=== PATIENT | female | born 1980 | race Caucasian/White ===

== ENCOUNTER 2018-04-18 00:55 | Inpatient (IN) | payer MEDICAID ==
[2018-04-18] MEDS ORDERED: CARBOPROST 250 MCG INJ IM ×2 (02:30→07:00)
[2018-04-18] MEDS ORDERED: MISOPROSTOL 200 MCG TAB PR ×2 (02:30→07:00)
[2018-04-18] MEDS ORDERED: OXYTOCIN 30 UNITS/LR 500 ML IV ×2 (02:30→07:00)
[2018-04-18] MEDS ORDERED: METHYLERGONOVINE 0.2 MG INJ IM ×2 (02:30→07:00)
[2018-04-18] MEDS ORDERED: BUTORPHANOL 2 MG INJ IV (02:30)
[2018-04-18] MEDS ORDERED: LIDOCAINE 1% (MPF) 30 ML INJ INJ (02:30)
[2018-04-18] MEDS: LACTATED RINGER'S 1,000 ML IV ×2 (02:52→03:24)
[2018-04-18 03:21] LABS: ADD MAN DIFF? NO
[2018-04-18] MEDS: AMPICILLIN 2 GM/NS (PMX) 100 ML IV (03:24)
[2018-04-18 03:25] LABS: BASOPHILS % 0.4 % (0.0-2.0); EOSINOPHILS # 0.3 10^3/ul (0.0-0.5); EOSINOPHILS % 3.2 % (0.0-7.0); HEMATOCRIT 37.5 % (37.0-47.0); HEMOGLOBIN 12.9 g/dl (12.0-16.0); LYMPHOCYTES % 22.4 % (15.0-51.0); MEAN CORPUSCULAR HGB CONC 34.4 g/dl (32.0-37.0); MEAN CORPUSCULAR VOLUME 93.1 fl (82.0-101.0); MEAN PLATELET VOLUME 11.1 fl (7.4-10.4); MONOCYTE # 0.8 10^3/ul (0.3-0.9); MONOCYTES % 8.9 % (0.0-11.0); NEUTROPHIL # 5.8 10^3/ul (1.6-7.5); NEUTROPHILS % 64.8 % (39.0-77.0); PLATELET COUNT 276 10^3/UL (140-415); RED BLOOD COUNT 4.03 10^6/ul (4.20-5.40); RED CELL DISTRIBUTION WIDTH 13.4 % (11.5-14.5)
[2018-04-18 03:40] LABS: INR 0.91; PROTIME 12.3 Sec (11.9-14.9)
[2018-04-18 03:41] LABS: PARTIAL THROMBOPLASTIN TIME 23.9 Sec (25.0-35.0)
[2018-04-18] MEDS ORDERED: EPHEDrine SULFATE 50 MG/5 ML SYG IV (04:00)
[2018-04-18] MEDS ORDERED: FENTAnyl 2MCG/ML-ROPIV 0.2% 100 ML BAG EPI (04:00)
[2018-04-18] MEDS ORDERED: DIPHENHYDRAMINE 50 MG INJ IV (04:00)
[2018-04-18] MEDS ORDERED: ONDANSETRON 4 MG INJ IV (04:00)
[2018-04-18] MEDS ORDERED: NALOXONE (0.4 MG/ML) INJ IV (04:00)
[2018-04-18 04:12] LABS: HEPATITIS B SURFACE ANTIGEN NEGATIVE (NEGATIVE)
[2018-04-18] MEDS: OXYTOCIN 30 UNITS/LR 500 ML IV ×2 (04:26→05:12)
[2018-04-18] MEDS: IBUPROFEN 600 MG TAB PO ×4 (04:43→23:33)
[2018-04-18] MEDS ORDERED: AMPICILLIN 1 GM/NS (PMX) 50 ML IV (06:30)
[2018-04-18] MEDS ORDERED: ACETAMINOPHEN 325 MG TAB PO (07:00)
[2018-04-18] MEDS ORDERED: HYDROCODONE/APAP (5/325) TAB PO (07:00)
[2018-04-18] MEDS: SENNA/DOCUSATE NA (8.6MG/50MG) TAB PO ×2 (08:39→22:01)
[2018-04-18] MEDS: WITCH HAZEL/GLYCERIN PAD PR (08:48)
[2018-04-18] MEDS: BENZOCAINE 20% 56 ML SPRAY TOP (08:48)
[2018-04-18] MEDS: DIBUCAINE 1% 30 GM OINT TOP (08:48)
[2018-04-18] MEDS: LANOLIN 7 GM TUBE TOP (08:49)
[2018-04-18] MEDS: LACTATED RINGER'S 1,000 ML IV* (10:07)
[2018-04-18 11:44] LABS: AMPHETAMINE/METHAMPHETAMINE NEGATIVE (NEGATIVE); BARBITURATES NEGATIVE (NEGATIVE); BENZODIAZEPINES NEGATIVE (NEGATIVE); CANNABINOIDS NEGATIVE (NEGATIVE); COCAINE NEGATIVE (NEGATIVE); OPIATES NEGATIVE (NEGATIVE)
[2018-04-18 15:31] LABS: RAPID PLASMA REAGIN NONREACTIVE (NR)
[2018-04-19] MEDS: IBUPROFEN 600 MG TAB PO ×3 (06:00→17:36)
[2018-04-19 07:03] LABS: ADD MAN DIFF? NO
[2018-04-19 07:10] LABS: BASOPHIL # 0.1 10^3/ul (0.0-0.1); BASOPHILS % 0.7 % (0.0-2.0); EOSINOPHILS # 0.3 10^3/ul (0.0-0.5); EOSINOPHILS % 3.2 % (0.0-7.0); HEMATOCRIT 35.1 % (37.0-47.0); HEMOGLOBIN 11.8 g/dl (12.0-16.0); LYMPHOCYTES # 2.3 10^3/ul (0.8-2.9); LYMPHOCYTES % 25.5 % (15.0-51.0); MEAN CORPUSCULAR HEMOGLOBIN 31.3 pg (29.0-33.0); MEAN CORPUSCULAR HGB CONC 33.6 g/dl (32.0-37.0); MEAN CORPUSCULAR VOLUME 93.1 fl (82.0-101.0); MONOCYTE # 0.7 10^3/ul (0.3-0.9); MONOCYTES % 7.3 % (0.0-11.0); NEUTROPHIL # 5.6 10^3/ul (1.6-7.5); PLATELET COUNT 268 10^3/UL (140-415); RED BLOOD COUNT 3.77 10^6/ul (4.20-5.40); RED CELL DISTRIBUTION WIDTH 13.7 % (11.5-14.5)
[2018-04-19 07:10] LABS: WHITE BLOOD COUNT 8.9 10^3/ul (4.8-10.8)
[2018-04-19] MEDS: SENNA/DOCUSATE NA (8.6MG/50MG) TAB PO ×2 (09:18→22:20)
[2018-04-20] MEDS: IBUPROFEN 600 MG TAB PO ×3 (00:34→11:44)
[2018-04-20] MEDS: SENNA/DOCUSATE NA (8.6MG/50MG) TAB PO (08:59)
[2018-04-20] MEDS: WITCH HAZEL/GLYCERIN PAD PR (08:59)
[2018-04-20] MEDS: BENZOCAINE 20% 56 ML SPRAY TOP (09:00)
[2018-04-20] MEDS: DIPHTH/TET/ACEL PERTUSS (ADULT) 0.5 ML VIAL IM* (12:23)
== END 2018-04-20 16:04 | disposition home or self-care (01) | DRG 775 ==
LOC: OBT 00:55 → L-D 00:55 → OBT 02:00 → L-D 02:00 → PP1 06:42
PROVIDERS: Obstetrics & Gynecology
PROC: 10E0XZZ Delivery of Products of Conception, External Approach (ICD-10-PCS; principal; 2018-04-18)
DX: O80 Encounter for full-term uncomplicated delivery (principal); Z3A.38 38 weeks gestation of pregnancy; Z37.0 Single live birth
CPT/HCPCS: 36415; 62319; 80307; 85025; 85610; 85730; 86592; 86850; 86870; 86900; 86901; 87340; 90715; 99464